=== PATIENT | female | born 1955 | race Caucasian/White ===

== ENCOUNTER → 2019-09-08 | Outpatient (CLI) | payer OTHER ==
[~2019-09-08] MED LIST: LOSA25 PO; METO25ER PO; Synthroid/Le0.125 MG PO
[2019-09-09 18:12] LABS: Free Thyroxine 1.52 ng/dL (0.70-1.60)
[2019-09-09 18:18] LABS: Thyroid Stimulating Hormone 0.13 uIU/mL (0.360-4.800)
== END ==
LOC: LAB 15:48 → LAB SHORT 15:48
PROVIDERS: Hospitalist
DX: E03.9 Hypothyroidism, unspecified (principal)
CPT/HCPCS: 84439; 84443

== ENCOUNTER 2020-10-06 07:31 | Day surgery (SDC) | payer OTHER | END 2020-10-06 22:48 | disposition home or self-care (01) | LOC: MOI US 07:31 → MOI MAM 08:00 → MOI US 22:48 | DX: C50.212 Malignant neoplasm of upper-inner quadrant of left female breast (principal); R59.0 Localized enlarged lymph nodes | CPT/HCPCS: 19285; 77065 ==

== ENCOUNTER 2020-10-17 09:42 | Day surgery (SDC) | payer OTHER ==
[~2020-10-17] VITALS: Ht 154.9 cm; Wt 98.5 kg
--- NOTE | 2020-10-17 15:32 | NUR ---
ASSUMED CARE AND RECEIVED REPORT FROM IVY LEVINE RN. PT WITH BREAST BINDER IN PLACE THAT IS CLEAN DRY AND INTACT. PT NAUSEATED AND PAINFUL. GAVE MEDS. PT RESTING COMFORTABLY NOW. PROVIDED BLANKET WARMER AND LIGHTS OFF.
--- NOTE | 2020-10-17 15:56 | NUR ---
SPOKE TO , AWARE THAT PT NEEDS MORE TIME TO REVOVER. PT RECEIVED 50MCGS FENTANYL. REGALN AND ZOFRAN. DRESSING TO BREAST REMAINS CDI. PT RESTING COMFORTABLY WITH SLIGHT GRIMACE ON FACE. REPORT TO JESSICA ARGUELLO RN.
--- NOTE | 2020-10-17 16:40 | NUR ---
Patient up to Ambulate independently. Gait steady. Discharge instructions reviewed with patient. Patient verbalizes understanding. Copy given to patient to take home.PT STATED SHE DID NOT WANT RN TO GO OVER INSTRUCTIONS WITH S/O. ROOM AIR. Discharged via wheelchair to private car for ride home WITH . BREAST BINDER IN PLACE AND GAUZE UNDERNEATH REMAINS CDI. PT GIVEN ICE PACK. DENIES NAUSEA AT TIME OF DISCHARGE AND STATES PAIN IS TOLERABLE AND "MUCH BETTER".
== END 2020-10-17 16:36 | disposition home or self-care (01) ==
LOC: NM 09:42 → ORSCMMR 09:42 → NM 10:30
PROVIDERS: Surgery
PROC: 0HBU0ZZ Excision of Left Breast, Open Approach (ICD-10-PCS; principal; 2020-10-17 11:45)
DX: C50.212 Malignant neoplasm of upper-inner quadrant of left female breast (principal); D36.0 Benign neoplasm of lymph nodes; I10 Essential (primary) hypertension; E03.9 Hypothyroidism, unspecified; Z79.899 Other long term (current) drug therapy
CPT/HCPCS: 38792; 76098; 88305; 88307; 88341; 88342; A9270-GY; A9520; J0690; J2405; J2704; J2765; J3010; J7120; Q9968

== ENCOUNTER 2022-02-04 08:12 | Day surgery (SDC) | payer OTHER ==
[~2022-02-04 08:12] MED LIST changes: +EUTHYROX125 MC1 PO; +MECL12.5 PO; +ONDA4ODT SL
== END 2022-02-08 23:08 | disposition home or self-care (01) ==
LOC: MOI US 08:12
DX: N63.22 Unspecified lump in the left breast, upper inner quadrant (principal); Z85.3 Personal history of malignant neoplasm of breast
CPT/HCPCS: 19083; 77065; 88108; 88305; 88342; A4648

== ENCOUNTER → 2022-03-05 | Outpatient (CLI) | payer OTHER | END | disposition home or self-care (01) | LOC: LAB SHORT 15:11 → LAB 15:11 → PLD 15:11 | DX: D36.17 Benign neoplasm of peripheral nerves and autonomic nervous system of trunk, unspecified (principal) | CPT/HCPCS: 88305 ==

== ENCOUNTER 2022-03-19 09:30 | Day surgery (SDC) | payer OTHER ==
[~2022-03-19] VITALS: Ht 154.9 cm; Wt 97.0 kg
== END 2022-03-19 11:28 | disposition home or self-care (01) ==
LOC: ORSCSDS 09:30
PROVIDERS: Surgery
PROC: 0DJD8ZZ Inspection of Lower Intestinal Tract, Via Natural or Artificial Opening Endoscopic (ICD-10-PCS; principal; 2022-03-19 10:45)
DX: Z12.11 Encounter for screening for malignant neoplasm of colon (principal); Z86.010 Personal history of colon polyps; K57.30 Diverticulosis of large intestine without perforation or abscess without bleeding; I10 Essential (primary) hypertension; E03.9 Hypothyroidism, unspecified; F41.9 Anxiety disorder, unspecified; D64.9 Anemia, unspecified; K21.9 Gastro-esophageal reflux disease without esophagitis; E66.01 Morbid (severe) obesity due to excess calories; Z68.41 Body mass index [BMI] 40.0-44.9, adult; Z79.899 Other long term (current) drug therapy
CPT/HCPCS: J2704; J7120

== ENCOUNTER → 2024-10-20 | Outpatient (CLI) | payer OTHER ==
[2024-10-20 17:16] LABS: Free Thyroxine 1.57 ng/dL (0.70-1.60)
[2024-10-20 17:24] LABS: Bun/Creatinine Ratio 19.5 (12.0-20.0); Calcium, Blood 9.4 mg/dL (8.5-10.1); Creatinine, Blood 0.62 mg/dL (0.40-1.00); Potassium, Blood 4.1 mmol/L (3.5-5.5); Thyroid Stimulating Hormone 0.271 uIU/mL (0.360-4.800)
== END | disposition home or self-care (01) ==
LOC: LAB SHORT 11:45 → LAB 11:45
PROVIDERS: Hospitalist
DX: I10 Essential (primary) hypertension (principal); E03.9 Hypothyroidism, unspecified
CPT/HCPCS: 80048; 84439; 84443